=== PATIENT | male | born 1945 | race African-American/Black ===

== ENCOUNTER 2017-08-31 07:05 | Outpatient (CLI) | payer MEDICARE, MEDICAID ==
[2017-08-31 07:54] LABS: Anion Gap 12 mmol/L (10-20); BUN (Urea Nitrogen) 16 mg/dL (8.4-25.7); Calc. Creatinine Clearance 0 mL/min (70-130); Calcium 9.4 mg/dL (7.8-10.44); Carbon Dioxide 22 mmol/L (23-31); Chloride 111 mmol/L (98-107); Estimated GFR-MDRD Greater than 90
[2017-08-31 09:26] LABS: Bilirubin Negative (Negative); Blood, Urine Negative (Negative); Glucose, Urine (Dipstick) Negative (Negative); Ketone, Urine Negative (Negative); Nitrite Negative (Negative); Protein, Urine (Dipstick) Negative (Neg-Trace); Urobilinogen 0.2 mg/dL (0.2-1.0)
[2017-08-31 09:30] LABS: Bacteria/HPF None Seen HPF (None Seen); Hyaline Casts/LPF 0-3 HYALINE CAST LPF (0-3 Hyaline); RBC/HPF None Seen HPF (0-3); Squamous Epithelial None Seen HPF (0-3); WBC/HPF None Seen HPF (0-3)
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
[2017-08-31] MEDS ORDERED: Iopamidol 300 61% 100 ML VIAL FS ONE (16:43)
== END 2017-08-31 07:06 | disposition home or self-care (01) ==
LOC: RAD 07:05
PROVIDERS: ATTEND Urology
DX: Z12.5 Encounter for screening for malignant neoplasm of prostate (principal); N13.5 Crossing vessel and stricture of ureter without hydronephrosis; N13.39 Other hydronephrosis; Z87.442 Personal history of urinary calculi
CPT/HCPCS: 74410; 80048; 81001; 87086; G0103; 36415

== ENCOUNTER 2018-09-07 10:12 | Outpatient (CLI) | payer MEDICARE, MEDICAID ==
[2018-09-07 10:59] LABS: Bilirubin Negative (Negative); Blood, Urine Negative (Negative); Clarity CLEAR (Clear); Glucose, Urine (Dipstick) Negative (Negative); Leukocyte Negative (Negative); Nitrite Negative (Negative); Protein, Urine (Dipstick) Negative (Neg-Trace); Specific Gravity, Urine 1.025 (1.002-1.036)
[2018-09-07 11:01] LABS: Bacteria/HPF None Seen HPF (None Seen); Hyaline Casts/LPF 0-3 HYALINE CAST LPF (0-3 Hyaline); Pathc Cast-AUWi Flag 0.14 (0-2.49); RBC/HPF None Seen HPF (0-3); Squamous Epithelial 0-3 HPF (0-3); WBC/HPF 0-3 HPF (0-3)
[2018-09-07 11:11] LABS: Anion Gap 11 mmol/L (10-20); BUN (Urea Nitrogen) 14 mg/dL (8.4-25.7); Calc. Creatinine Clearance 0 mL/min (70-130); Calcium 9.6 mg/dL (7.8-10.44); Carbon Dioxide 28 mmol/L (23-31); Chloride 108 mmol/L (98-107); Estimated GFR-MDRD Greater than 90; Glucose 114 mg/dL (83-110); Potassium 4.2 mmol/L (3.5-5.1); Sodium 143 mmol/L (136-145)
[2018-09-07] MEDS ORDERED: Iopamidol 370 76% 100 ML VIAL ONE (12:54)
--- NOTE | 2018-09-07 15:15 | CT ---
CT ABDOMEN AND PELVIS WITH AND WITHOUT CONTRAST: Technique: Multiple axial tomograms were obtained through the abdomen and pelvis pre and post IV cont rast. Post contrast imaging obtained in portal venous and delayed venous phase. Indications: Urinary frequency, stricture. Right flank pain. FINDINGS: Lung bases clear. Review of urinary tract on noncontrast study shows no evidence of hydronephrosis. No evidence of urin tavo tract calculus. Ureters are normal caliber. Bladder is minimally distended and appears unremarkab le. On the post contrast images both kidneys show symmetric enhancement. No hydronephrosis. No enhancing lesion. On delayed sequence there is secretion in the collecting structures. Collecting structures ap pear unremarkable and symmetric. Bladder is mildly distended on the delayed sequence but is not well evaluated. Liver, spleen, and pancreas appear unremarkable. Adrenal glands normal. Small bowel loops are normal. Diverticulosis of the sigmoid and left colon. There is a subtle area of haziness surrounding the sigmoid in the mid to right abdomen which could re present early changes of diverticulitis at this location. This haziness is probably best appreciated on the coronal view. No extraluminal fluid or abscess. No extraluminal gas. IMPRESSION: 1. No urinary tract abnormality identified. 2. Diverticulosis of the sigmoid colon. Question changes of early diverticulitis in the midsigmoid re gion. POS: [facility]
== END 2018-09-07 10:13 | disposition home or self-care (01) ==
LOC: CT 10:12
PROVIDERS: ATTEND Urology
DX: N13.5 Crossing vessel and stricture of ureter without hydronephrosis (principal); R35.0 Frequency of micturition; K57.30 Diverticulosis of large intestine without perforation or abscess without bleeding; Z87.442 Personal history of urinary calculi
CPT/HCPCS: 36415; 74178; 80048; 81001; 87086

== ENCOUNTER 2019-01-16 12:20 | Outpatient (CLI) | payer MEDICARE, MEDICAID ==
--- NOTE | 2019-01-16 14:53 | ULT ---
ULTRASOUND RENAL BILATERAL STANDARD: Date: 01/16/19 HISTORY: History of renal stones. COMPARISON: CT dated 09/07/18. FINDINGS: Real-time Souza scale and color evaluation of the kidneys and urinary bladder performed. Right kidney measures 10.6 x 6.7 x 7.0 cm. Left kidney measures 9.1 x 4.9 x 5.6 cm. No renal mass, hy dronephrosis, or abnormal calcifications. Pre-void urinary bladder volume is 120 mL. IMPRESSION: Normal exam. No evidence of obstructive uropathy. POS: [facility]
--- NOTE | 2019-01-16 15:30 | ULT ---
TESTICULAR ULTRASOUND: DATE: 01/16/2019. HISTORY: Left testicular pain. FINDINGS: Testicles demonstrate a normal sonographic appearance bilaterally with homogeneous echotexture, and t here is no evidence of a testicular mass. The right testicle measures 3.4 cm x 2.3 cm x 2.2 cm with the left testicle measuring 3.4 cm x 2.2 cm x 1.8 cm. Doppler evaluation including spectral analysis and color flow evaluation does demonstrate arterial fl ow in each testicle. The right epididymis is mildly larger in size measuring 1.5 cm x 0.9 cm. There are 2 anechoic struct ures seen within the right epididymal head, the largest measuring 0.7 cm, which demonstrate character istics most compatible with epididymal cysts. The left epididymis demonstrates a normal sonographic appearance. There is evidence of bilateral small to moderate-sized bilateral hydroceles with a small amount of ec hogenic material/debris within each hydrocele. IMPRESSION: 1. Normal-appearing bilateral testicles with arterial flow documented in each testicle. 2. Small right epididymal cysts. 3. Bilateral hydroceles with echogenic material/debris within each hydrocele. POS: [facility]
== END 2019-01-16 12:21 | disposition home or self-care (01) ==
LOC: BICULT 12:20
PROVIDERS: ATTEND Urology
DX: N50.812 Left testicular pain (principal); N50.3 Cyst of epididymis; N43.3 Hydrocele, unspecified; Z87.442 Personal history of urinary calculi
CPT/HCPCS: 76770; 76870; 93976

== ENCOUNTER 2019-07-25 10:36 | Outpatient (CLI) | payer MEDICARE, MEDICAID ==
--- NOTE | 2019-07-25 12:15 | RAD ---
PA AND LATERAL VIEWS CHEST: Date: 07/25/19 HISTORY: Hypertension. FINDINGS: Comparison made with exam on 06/16/17. The heart size is borderline, but stable. The aorta is tortuous. The lungs are well expanded with sta ble chronic changes. No lobar consolidation, pneumothoraces, or pleural effusions are seen. There are degenerative changes in the spine. IMPRESSION: Stable exam. No acute process. POS: [facility]
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
== END 2019-07-25 10:37 | disposition home or self-care (01) ==
LOC: BICRAD 10:36
PROVIDERS: ATTEND Family Medicine
DX: M16.12 Unilateral primary osteoarthritis, left hip (principal); I10 Essential (primary) hypertension
CPT/HCPCS: 71046; 72148; 72170

== ENCOUNTER 2020-11-12 12:42 | Outpatient (CLI) | payer MEDICARE, MEDICAID ==
--- NOTE | 2020-11-12 14:26 | ULT ---
US Renal Bilateral STANDARD: 11/12/2020 12:54 PM CLINICAL HISTORY: Urinary tract infection. Renal calcifications.. STUDY: Renal ultrasound COMPARISON: 01/16/2019 FINDINGS: Right kidney: Echogenicity: Normal. Masses/cysts: None. Hydronephrosis: None. Calcifications: None. Length: 9.2 cm Left kidney: Echogenicity: Normal. Masses/cysts: None. Hydronephrosis: None. Calcifications: None. Length: 11.6 cm Urinary bladder is empty. IMPRESSION: Unremarkable renal ultrasound
== END 2020-11-12 12:43 | disposition home or self-care (01) ==
LOC: BICULT 12:42
PROVIDERS: ATTEND Urology
DX: N20.0 Calculus of kidney (principal); R39.11 Hesitancy of micturition; N40.1 Benign prostatic hyperplasia with lower urinary tract symptoms; Z87.442 Personal history of urinary calculi
CPT/HCPCS: 76770

== ENCOUNTER 2021-02-05 12:55 | Outpatient (CLI) | payer MEDICARE, MEDICAID ==
[~2021-02-05 12:55] MED LIST: Iopamidol-370 76% 500 ML 1 ML ONE
== END 2021-02-05 12:56 | disposition home or self-care (01) ==
LOC: BICCT 12:55
PROVIDERS: ATTEND Urology
DX: N20.0 Calculus of kidney (principal); R10.9 Unspecified abdominal pain
CPT/HCPCS: 74178; 82565; Q9967

== ENCOUNTER 2022-01-23 09:33 | Outpatient (CLI) | payer MEDICARE, MEDICAID | END 2022-01-23 09:34 | disposition home or self-care (01) | LOC: BICULT 09:33 | PROVIDERS: ATTEND Urology | DX: N13.5 Crossing vessel and stricture of ureter without hydronephrosis (principal); Z87.442 Personal history of urinary calculi | CPT/HCPCS: 76770 ==

== ENCOUNTER 2022-08-06 15:10 | Outpatient (CLI) | payer OTHER, MEDICAID | END 2022-08-06 15:11 | disposition home or self-care (01) | LOC: BICULT 15:10 | PROVIDERS: ATTEND Urology | DX: N20.0 Calculus of kidney (principal) | CPT/HCPCS: 76770 ==

== ENCOUNTER 2022-11-12 11:36 | Outpatient (CLI) | payer OTHER | END 2022-11-12 11:37 | disposition home or self-care (01) | LOC: BICCT 11:36 | PROVIDERS: ATTEND Urology | DX: N20.0 Calculus of kidney (principal); N32.89 Other specified disorders of bladder; K57.30 Diverticulosis of large intestine without perforation or abscess without bleeding | CPT/HCPCS: 74178; 82565 ==

== ENCOUNTER 2023-09-08 08:21 | Outpatient (CLI) | payer OTHER, MEDICAID | END 2023-09-08 08:22 | disposition home or self-care (01) | LOC: MRI 08:21 → BICMRI 08:22 | PROVIDERS: ATTEND Family Medicine | DX: M23.306 Other meniscus derangements, unspecified meniscus, right knee (principal); I50.30 Unspecified diastolic (congestive) heart failure; M25.561 Pain in right knee; M25.551 Pain in right hip; M25.451 Effusion, right hip; M24.451 Recurrent dislocation, right hip; I80.231 Phlebitis and thrombophlebitis of right tibial vein; R06.02 Shortness of breath; M17.11 Unilateral primary osteoarthritis, right knee; M16.11 Unilateral primary osteoarthritis, right hip; M70.61 Trochanteric bursitis, right hip | CPT/HCPCS: 71046 ==